=== PATIENT | male | born 1950 | race African-American/Black ===

== ENCOUNTER 2018-11-01 06:14 | Emergency (ER) | payer SELFPAY ==
[~2018-11-01] VITALS: Ht 185.4 cm; Wt 100.0 kg
[2018-11-01] MEDS ORDERED: HYDROCODONE/ACETAMINOPHEN 5/325MG TABLET PO ONE (08:45)
[2018-11-01 09:35] VITALS: BP 158/88
== END 2018-11-01 09:37 | disposition home or self-care (01) ==
LOC: ER 06:14
DX: M54.5 Low back pain (principal); I10 Essential (primary) hypertension
CPT/HCPCS: 99283